=== PATIENT | female | born 1950 | race Caucasian/White ===

== ENCOUNTER → 2016-04-23 | Outpatient (CLI) | payer BC ==
[~2016-04-23] MED LIST: ALBU1AER9 INH; ASPI-435 PO; CALC-354 PO; CHOL100010 PO; CLR10 PO; FLUT110A INH; LEVO25TA5 PO; LOSA1TAB PO; MULTTAB58 PO; SNG10 PO; TAMO20TA9 PO; TRAZ50TA35 PO; ZOLP5TAB6 PO
[2016-04-23 12:59] VITALS: BP 138/86; PULSE 79; TEMP 37; O2SAT 95
--- NOTE | 2016-04-23 15:38 | Radiation Oncology Follow-Up ---
Radiation Oncology Follow-Up Date of Visit Apr 23, 2016. Reason For Visit Annual follow-up Radiation Completion Date APBI 09/19/13 Diagnosis (1) Stage I breast cancer Status: Resolved Onset Date: 07/07/2013 Histology Subtype: ductal Stage: l (A) Permanent Comment: Status post abnormal right breast mammogram 06/08/2013 Status post core needle biopsy 07/07/2013 revealing invasive ductal carcinoma Status post right partial mastectomy and sentinel lymph node biopsy 07/27/2013 Stage pT1b pN0M0 Oncotype DX score of 17 Status post completion of radiation therapy utilizing accelerated partial breast treatment completed 09/19/2013 received 3850 cGy Last Edited By: Seema Bunch on Apr 23, 2015 14:37 History of Present Illness Ms. Williamson is a 62-year-old female who presented with an abnormality on her right breast following bilateral screening mammograms performed on 06/08/2013. These images were compared to the previous screening images from 06/03/2012 and 06/03/2011. These new images showed a focal asymmetry versus possible summation at the 12:00 posterior position. Spot compression and ultrasound was recommended. On 06/30/2013 a focal asymmetry is present at the 12:00 posteriorly which persists on additional views. Targeted ultrasound demonstrated a 0.4 x 0.4 x 0.4 cm irregular hypoechoic mass in the 12:00 radian 5 cm from the nipple. Ultrasound also demonstrated a hypoechoic mass in the 12:00 radian 1 cm from the nipple with internal calcifications measuring 0.7 x 0.6 x 0.5 cm. This latter finding likely corresponds to the nodular density seen on mammogram. On 07/07/2013 patient underwent core biopsies of the 2 abnormalities seen in the right breast at the 12 o'clock position both 5 cm from the nipple and 1 cm from the nipple. Core biopsy taken 5 cm from the nipple revealed an invasive ductal carcinoma grade 1 with focal ductal carcinoma in situ with low nuclear grade. Biopsy of the right breast 12 o'clock position 1 cm from the nipple revealed a complex fibroadenoma with mild ductal hyperplasia and sclerosing adenosis. Accession #: [id number]. Estrogen receptors were strongly positive, progesterone receptors were weakly positive and HER-2/bulmaro was negative. Patient was seen by Dr. Nolasco to discuss treatment options. She ordered bilateral breast MRIs for further evaluation and staging. These were performed on 07/25/2013. The left breast no suspicious lesions were noted. In the right breast at the 12 o'clock position a 0.6 x 0.5 x 1.0 cm enhancing lesion containing biopsy marker corresponding to the biopsy-proven breast carcinoma was noted. The other biopsy marker from the 12 o'clock position 1 cm from the nipple was noted with no associated suspicious enhancing lesions seen on breast MRI. The patient agreed to proceed with breast conserving therapy. Therefore on 07/27 Dr. Nolasco performed right axillary sentinel node biopsies and right breast partial mastectomy. 3 sentinel lymph nodes were identified and no metastatic carcinoma was identified on H&E or by pankeratin immunostain. The primary carcinoma measured 0.6 cm was a Fulton grade 1 of 3. No lymphovascular or perineural invasion was identified. A small amount of associated low-grade DCIS with cribriform architecture and no comedo necrosis or calcifications was identified. The margins are all negative with tumor approaching within 0.8 cm the anterior and posterior margins. Case: [id number]. Slides were sent for an Oncotype DX evaluation. This revealed a score of 17. Chemotherapy was not required. She returned to our office and underwent a CT simulation was found to be a candidate for accelerated partial breast treatment. Radiation was completed 09/19/2013 received 3850 cGy Interim History She has been doing well over this past year. She denies any changes to her breast. She has noted no masses or tenderness and no change of the axilla. She is up-to-date on mammography. She continues on tamoxifen. She has the mild side effect of hot flashes. She had a mammogram 12/19/2015. This was a unilateral right breast mammogram. The findings were benign, no evidence of malignancy. Normal interval follow-up is recommended in 6 months. BI-RADS Category 2. Allergies Coded Allergies: JEWEL Inhibitors (Verified Adverse Reaction, Unknown, cough, 07/27/13) Home Medications Scheduled Aspirin (Aspirin 81), 81 MG PO DAILY Calcium Carbonate-Cholecalcife (Caltrate 600+D), 1 TAB PO DAILY Cholecalciferol (Vitamin D), 1,000 INTER.UNIT PO DAILY Fluticasone Propionate Hfa (Flovent Hfa 110MCG Inhaler), 1 PUFF INH BID Levothyroxine Sodium (Levothyroxine Sodium), 25 MCG PO DAILY Loratadine (Claritin), 10 MG PO DAILY Losartan Potassium (Cozaar), 25 MG PO DAILY Montelukast Sod (Montelukast Sodium), 10 MG PO DAILY Multiple Vitamin (Multivitamin), 1 TAB PO DAILY Tamoxifen (Nolvadex), 20 MG PO DAILY Scheduled PRN Albuterol (Proair Hfa), 2 PUFFS INH Q4PRN PRN for SOB/Wheezing Review of Systems Gastrointestinal: Symptoms: WNL Oral: Symptoms: No Problems Respiratory: Symptoms: WNL Urinary: Symptoms: WNL, Nocturia Comments: Nocturia x 3-4 - relates due to fluid intake Skin: Symptoms: No Problems Breast: Right Upper Arm Measurement: 34.0 Right Mid Arm Measurement: 26.5 Right Wrist Measurement: 17.4 Left Upper Arm Measurement: 33.2 Left Mid Arm Measurement: 25.7 Left Wrist Measurement: 16.5 Arm Dominence: Right Physical Exam Vital Signs Date Time Temp Pulse Resp B/P Pulse Ox O2 Delivery O2 Flow Rate FiO2 04/23/16 12:59 37.0 79 16 138/86 95 Fatigue: None General Appearance: no apparent distress Eyes: normal inspection, EOMI ENT: normal ENT inspection, hearing grossly normal Neck: no adenopathy, thyroid normal Respiratory/Chest: lungs clear, no respiratory distress, no accessory muscle use Breast: Breast examination reveals well-healed incisions of the right breast. There are no masses or tenderness no axillary adenopathy. There are postoperative and fibrous changes in the area of the incision. There is mild telangiectasis. Using the Sperry score cosmesis she has a good outcome. The left pressure no masses or tenderness no axillary adenopathy. Cardiovascular: regular rate, rhythm, no gallop, no murmur Abdomen: non tender, soft, no organomegaly Extremities: no pedal edema Neurologic/Psychiatric: no motor/sensory deficits, alert, normal mood/affect Skin: warm/dry Lymphatic: no adenopathy Additional Studies Mammography as reviewed above. Assessment & Plan Plan: She has recheck mammography scheduled for May. Continue regular follow- up with Dr. Chandler and her primary care physician. She continues on tamoxifen. We asked her to return to our office in 1 year. She may call if she has any questions or concerns in the interim. Total Time In Follow-Up I spent 20 minutes speaking to the patient performing examination. I spent 15 minutes reviewing information completing this note. Copy To Kadi Nolasco MD; Abelardo Neumann M.D.(FABIOLA); Chemo Chandler M.D. Problem Qualifiers (1) Stage I breast cancer: Laterality: right Qualified Codes: C50.911 - Malignant neoplasm of unspecified site of right female breast
== END | disposition home or self-care (01) ==
LOC: C.ONC 12:41
PROVIDERS: ATTEND Physician Assistant Medical
DX: Z08 Encounter for follow-up examination after completed treatment for malignant neoplasm (principal); Z92.3 Personal history of irradiation; Z85.3 Personal history of malignant neoplasm of breast

== ENCOUNTER → 2017-04-22 | Outpatient (CLI) | payer BC ==
[~2017-04-22] MED LIST changes: -TRAZ50TA35 PO; -ZOLP5TAB6 PO; +lipitor
[2017-04-22 13:35] VITALS: BP 144/92; PULSE 83; TEMP 37.2; O2SAT 95
--- NOTE | 2017-04-22 14:09 | Radiation Oncology Follow-Up ---
Radiation Oncology Follow-Up Date of Visit Apr 22, 2017. Reason For Visit Annual follow-up Radiation Completion Date 09/19/13 Diagnosis (1) Stage I breast cancer Status: Resolved Onset Date: 07/07/2013 Histology Subtype: Ductal Stage: l (A) Permanent Comment: Status post abnormal right breast mammogram 06/08/2013 Status post core needle biopsy 07/07/2013 revealing invasive ductal carcinoma Status post right partial mastectomy and sentinel lymph node biopsy 07/27/2013 Stage pT1b pN0M0 Oncotype DX score of 17 Status post completion of radiation therapy utilizing accelerated partial breast treatment completed 09/19/2013 received 3850 cGy Last Edited By: Seema Bunch on Apr 23, 2015 14:37 History of Present Illness Ms. Williamson presented with an abnormality on her right breast following bilateral screening mammograms performed on 06/08/2013. These images were compared to the previous screening images from 06/03/2012 and 06/03/2011. These new images showed a focal asymmetry versus possible summation at the 12:00 posterior position. Spot compression and ultrasound was recommended. On 06/30/2013 a focal asymmetry is present at the 12:00 posteriorly which persists on additional views. Targeted ultrasound demonstrated a 0.4 x 0.4 x 0.4 cm irregular hypoechoic mass in the 12:00 radian 5 cm from the nipple. Ultrasound also demonstrated a hypoechoic mass in the 12:00 radian 1 cm from the nipple with internal calcifications measuring 0.7 x 0.6 x 0.5 cm. This latter finding likely corresponds to the nodular density seen on mammogram. On 07/07/2013 patient underwent core biopsies of the 2 abnormalities seen in the right breast at the 12 o'clock position both 5 cm from the nipple and 1 cm from the nipple. Core biopsy taken 5 cm from the nipple revealed an invasive ductal carcinoma grade 1 with focal ductal carcinoma in situ with low nuclear grade. Biopsy of the right breast 12 o'clock position 1 cm from the nipple revealed a complex fibroadenoma with mild ductal hyperplasia and sclerosing adenosis. Accession #: [id number]. Estrogen receptors were strongly positive, progesterone receptors were weakly positive and HER-2/bulmaro was negative. Patient was seen by Dr. Nolasco to discuss treatment options. She ordered bilateral breast MRIs for further evaluation and staging. These were performed on 07/25/2013. The left breast no suspicious lesions were noted. In the right breast at the 12 o'clock position a 0.6 x 0.5 x 1.0 cm enhancing lesion containing biopsy marker corresponding to the biopsy-proven breast carcinoma was noted. The other biopsy marker from the 12 o'clock position 1 cm from the nipple was noted with no associated suspicious enhancing lesions seen on breast MRI. The patient agreed to proceed with breast conserving therapy. Therefore on 07/27 Dr. Nolasco performed right axillary sentinel node biopsies and right breast partial mastectomy. 3 sentinel lymph nodes were identified and no metastatic carcinoma was identified on H&E or by pankeratin immunostain. The primary carcinoma measured 0.6 cm was a Ramah grade 1 of 3. No lymphovascular or perineural invasion was identified. A small amount of associated low-grade DCIS with cribriform architecture and no comedo necrosis or calcifications was identified. The margins are all negative with tumor approaching within 0.8 cm the anterior and posterior margins. Case: [id number]. Slides were sent for an Oncotype DX evaluation. This revealed a score of 17. Chemotherapy was not required. She returned to our office and underwent a CT simulation was found to be a candidate for accelerated partial breast treatment. Radiation was completed 09/19/2013 received 3850 cGy Interim History She has been doing well over this past year. She denies any changes to her breast. She has noted no masses or tenderness no change of the axilla. She has had no swelling of her arm. She is up-to-date on mammography. She has an area of fibrous tissue in the upper portion of the breast this is unchanged from previous. She continues on tamoxifen and denies side effects. Arm size has decreased bilaterally. And when this was discussed it is noted that she has had approximate 20 pound weight loss over this past year. She is going to [employer]. Allergies Coded Allergies: JEWEL Inhibitors (Verified Adverse Reaction, Unknown, cough, 07/27/13) Home Medications Scheduled Aspirin (Aspirin 81), 81 MG PO DAILY Calcium Carbonate-Cholecalcife (Caltrate 600+D), 1 TAB PO DAILY Cholecalciferol (Vitamin D), 1,000 INTER.UNIT PO DAILY Fluticasone Propionate Hfa (Flovent Hfa 110MCG Inhaler), 1 PUFF INH BID Levothyroxine Sodium (Levothyroxine Sodium), 25 MCG PO DAILY Loratadine (Claritin), 10 MG PO DAILY Losartan Potassium (Cozaar), 25 MG PO DAILY Montelukast Sod (Montelukast Sodium), 10 MG PO DAILY Multiple Vitamin (Multivitamin), 1 TAB PO DAILY Tamoxifen (Nolvadex), 20 MG PO DAILY Scheduled PRN Albuterol (Proair Hfa), 2 PUFFS INH Q4PRN PRN for SOB/Wheezing Miscellaneous Medications [lipitor] Review of Systems Gastrointestinal: Symptoms: Constipation Oral: Symptoms: No Problems Respiratory: Symptoms: WNL Urinary: Symptoms: WNL Comments: Nocturia x 3-4 - relates due to fluid intake Skin: Symptoms: No Problems Breast: Right Upper Arm Measurement: 32.5 Right Mid Arm Measurement: 25.5 Right Wrist Measurement: 17.0 Left Upper Arm Measurement: 31.5 Left Mid Arm Measurement: 25.5 Left Wrist Measurement: 16.0 Arm Dominence: Right Physical Exam Vital Signs Date Time Temp Pulse Resp B/P (MAP) Pulse Ox O2 Delivery O2 Flow Rate FiO2 04/22/17 13:35 37.2 83 18 144/92 95 Fatigue: None General Appearance: no apparent distress Eyes: normal inspection, EOMI ENT: normal ENT inspection, hearing grossly normal Neck: no adenopathy, thyroid normal Respiratory/Chest: lungs clear, no respiratory distress, no accessory muscle use Breast: Breast examination reveals well-healed incisions of the right breast. There is large area of fibrous tissue in the upper central portion of the breast. There is firmness with no distinct masses. There is no tenderness. She has mild telangiectasia. There are no skin retractions or nipple changes. Using the Whitney score cosmesis she has a fair outcome. The left breast showed no masses or tenderness and no axillary adenopathy. Cardiovascular: regular rate, rhythm, no gallop, no murmur Neurologic/Psychiatric: no motor/sensory deficits, alert, normal mood/affect Skin: warm/dry Pain Management Patient Reports Pain: No Pain Location: None Patient Preferred Pain Scale: 0 - 10 Initial Pain Intensity: 0.0 Pain Management Plan She denies pain therefore requires no pain management. Laboratory Laboratory Results: not applicable Pathology Pathology Results: not applicable Imaging Imaging Studies: were reviewed, and pertinent findings noted below Imaging Comments Date/Time of Imaging Study Study Completed: 06/18/2016 8:07 AM iSite PACS Image Narrative Comparison is made to images from 12/19/2015 (right) and images from 06/17/2015 (bilateral) and images from 12/14/2014 (right) and images from 06/11/2014 (bilateral) and images from 2013 (right) and images from 06/30/2013 and images from 06/08/2013 (bilateral). There is no significant interval change. Right Breast Findings: The breast is heterogeneously dense (51% - 75% fibroglandular). This may lower the sensitivity of mammography.Stable post therapy changes.There are no suspicious calcifications, masses, or other abnormalities. Diffuse punctate scattered calcifications are stable. Left Breast Findings: The breast is heterogeneously dense (51% - 75% fibroglandular). This may lower the sensitivity of mammography. Diffuse punctate scattered calcifications are stable. There are no suspicious calcifications, masses, or other abnormalities. Authenticated By Authenticating Date Authenticating Time Reading Providers(s) STEPHANIE MIRAMONTES MD 06-18-2016 08:45 STEPHANIE MIRAMONTES MD IMPRESSION: RIGHT BREAST: Benign, no evidence of malignancy. Normal interval follow-up is recommended in 12 months. LEFT BREAST: Benign, no evidence of malignancy. Normal interval follow-up is recommended in 12 months. OVERALL ASSESSMENT - CATEGORY 2 - BENIGN END OF IMPRESSION Note: Approximately 10% of breast cancers are not detected on mammography. A negative mammographic report should not delay biopsy if a clinically suggestive mass is present. This mammogram has been analyzed with the computer aided detection system. Tomosynthesis was done. This notice contains the results of your recent mammogram, including information about breast density. If your mammogram shows that your breast tissue is dense, you should know that dense breast tissue is a common finding and is not abnormal. Statistics show many women could have dense or highly dense breasts. Dense breast tissue can make it harder to find cancer on a mammogram and may be associated with an increased risk of cancer. This information about the result of your mammogram is given to you to raise your awareness and to inform your conversations with your physician. Together, you can decide which screening options are right for you, based on your mammogram results, individual risk factors or physical examination. A report of your results was sent to your physician. Your mammographic breast density on today's study is described above. There are four categories of breast density on mammography. Fatty breasts and those with scattered fibroglandular tissue are not considered dense. Heterogeneously dense or extremely dense tissue is considered "dense". Please understand that assessment of breast density may vary from year to year. Assessment & Plan Plan: She will be due for mammography in May. This is scheduled. She will continue regular follow-up with her breast surgeon, medical oncology, and primary care physician. She continues on tamoxifen. She is planning to continue follow-up with [employer]. We asked her to return to our office in 1 year. She may call if she has any questions or concerns in the interim. Total Time In Follow-Up I spent 20 minutes speaking to the patient and performing examination. I spent 15 minutes reviewing information and completing this note. Copy To Kadi Nolasco MD; Laureen Perea MD; Abelardo Neumann M.D.(FABIOLA) Problem Qualifiers (1) Stage I breast cancer: Laterality: right
== END | disposition home or self-care (01) ==
LOC: C.ONC 13:21
PROVIDERS: ATTEND Physician Assistant Medical
DX: Z08 Encounter for follow-up examination after completed treatment for malignant neoplasm (principal); Z92.3 Personal history of irradiation; Z86.000 Personal history of in-situ neoplasm of breast